=== PATIENT | female | born 1965 | race Caucasian/White ===

== ENCOUNTER 2020-09-06 18:45 | Emergency (ER) | payer BC ==
[~2020-09-06] VITALS: Ht 165.1 cm; Wt 46.3 kg
[2020-09-06 19:10] VITALS: BP 126/70
--- NOTE | 2020-09-06 19:15 | NUR ---
Patient presents with three day history of N/V/D and lower abdominal pain. States, "Have a history of kidney stones and think I am passing one. I also think my Crohn's is flaring up." Rates pain 01/12. Patient states she has tried imodium, tylenol, and zofran with no improvement of symptoms.
[2020-09-06] MEDS ORDERED: ZOFRAN IV STA (19:20)
[2020-09-06] MEDS ORDERED: DILAUDID IV STA (19:20)
[2020-09-06] MEDS ORDERED: LACTATED RINGERS 1,000 ML ONE ×2 (19:21→21:40)
[2020-09-06] MEDS ORDERED: DILAUDID ONE (19:22)
[2020-09-06] MEDS ORDERED: ZOFRAN ONE (19:22)
[2020-09-06] MEDS: LACTATED RINGERS 1,000 ML IV SCH ×2 (19:33→20:37)
--- NOTE | 2020-09-06 19:37 | NUR ---
Using aseptic technique peripheral IV started in right AC x 1 attempt, good blood return, blood work drawn, flushed with NS, secured with tegaderm and tape, patient tolerated well
[2020-09-06 19:45] LABS: BASOPHIL # 0.1 10^3/uL (0.0-0.1); BASOPHIL % 0.3 % (0.0-0.2); EOSINOPHIL % 0.2 % (0.0-5.0); LYMPHOCYTES # 1.63 10^3/uL1 (1.0-4.8); LYMPHOCYTES % 8.3 % (24.0-44.0); MEAN CORP HGB 31.3 pg (26-34); MONOCYTES # 1.7 10^3/uL (0.3-0.8); MONOCYTES % 8.4 % (5.0-12.0); NEUTROPHIL # 16.1 10^3/uL (1.8-7.7); NEUTROPHILS % 82.5 % (41.0-85.0); PLATELET COUNT 456 10^3/uL (150-400); RED CELL DISTRIBUTION WIDTH 12.2 % (11.5-14.5)
[2020-09-06 19:47] LABS: BILIRUBIN,URINE NEGATIVE (NEGATIVE); UA COLOR YELLOW
[2020-09-06 19:48] LABS: UROBILINOGEN,URINE 0.2 E.U./dL (0.2)
[2020-09-06 20:04] LABS: CALCIUM 9.1 mg/dL (8.4-10.5); CARBON DIOXIDE 22.3 mmol/L (20.0-32)
[2020-09-06 20:13] VITALS: BP 122/74
--- NOTE | 2020-09-06 21:01 | DIREP ---
PROCEDURE:CT ABD/PELVIS WITHOUT CONTRAST TECHNIQUE:No oral contrast was given. Axial cuts were obtained through the abdomen and pelvis without IV contrast. The images were viewed at lung, liver, bone, and soft tissue settings. Sagittal and coronal reconstructions are provided. COMPARISON:None. INDICATIONS:concerns for stones and crohns flare FINDINGS: LOWER CHEST:The lung bases are clear. Peripherally calcified breast implants LIVER:Punctate calcifications compatible with antecedent granulomatous infection. BILIARY:Normal. PANCREAS:Normal. SPLEEN:Punctate calcifications compatible with antecedent granulomatous infection. KIDNEYS:No evidence of urinary calculi. No evidence of obstructive uropathy. Renal morphology appears unremarkable. ADRENALS:Bilateral adrenal adenomas, slightly larger on the left. AORTA/VASCULAR:Atheromatous calcifications. RETROPERITONEUM:Normal. BOWEL/MESENTERY:Bowel evaluation is limited by the lack of oral contrast. No evidence of bowel obstruction, free intraperitoneal air, or abscess. The appendix is not visualized; however, no adjacent inflammatory changes are present to suggest acute appendicitis. ABDOMINAL WALL:Normal. PELVIS:Normal. BONES:Normal OTHER: The absence of IV contrast limits evaluation of the soft tissues. CONCLUSION: No acute intra-abdominal process Dictated by: Juliana Monk M.D. on 09/06/2020 at 08:52 PM
[2020-09-06 21:15] VITALS: BP 116/73
[2020-09-06] MEDS ORDERED: PREDNISONE PO STA (21:23)
[2020-09-06] MEDS ORDERED: LACTATED RINGERS 1,000 ML IV STA (21:28)
[2020-09-06] MEDS ORDERED: ROCEPHIN 1,000 MG in NS 100ML 100 ML IV STA (21:28)
[2020-09-06] MEDS ORDERED: ROCEPHIN ONE (21:40)
[2020-09-06] MEDS ORDERED: NS 100ML 100 ML IV ONE (21:40)
[2020-09-06] MEDS ORDERED: PREDNISONE ONE (21:41)
--- NOTE | 2020-09-06 22:23 | ER.PDOC ---
General Chief Complaint: Abdomen Pain Stated Complaint: KIDNEY PAIN Time seen by MD: 19:20 Source: patient Exam Limitations: no limitations History of Present Illness Initial Comments 55-year-old female with past medical history of Crohn's disease complaining of 3 days of progressive lower abdominal pain and diarrhea. Patient states that she was concerned she may have kidney stones which she has had so in the past due to the lower abdominal pain but she has recently also been taking prednisone for for Crohn's flare that she had stopped approximately a week ago. Patient does have a GI doctor back in [place] but is looking to establish care with a new GI provider locally. She is taking her daily Crohn's regimen and does have few prednisone at home to take for a flare. She does have lower abdominal cramping and some dysuria in addition to the diarrhea.She denies fevers chills or any other associated symptoms. She does have some nausea at times. Severity/Quality: moderate, severe, cramping, sharpness, stabbing Associated Symptoms: diarrhea Allergies: Coded Allergies: calcium (Verified Allergy, Intermediate, 09/06/20) Vital Signs First Vital Signs Date Time Temp Pulse Resp B/P (MAP) Pulse Ox O2 Delivery O2 Flow Rate FiO2 09/06/20 19:10 98.2 124 18 09/06/20 19:10 97 09/06/20 19:10 126/70 (88) Last Vital Signs Date Time Temp Pulse Resp B/P (MAP) Pulse Ox O2 Delivery O2 Flow Rate FiO2 09/06/20 20:13 110 18 122/74 (90) 96 09/06/20 19:10 98.2 Past Medical History Medical History: other Surgical History: breast augmentation, tonsillectomy Social History Alcohol Use: none Drug Use: none EENTM: no symptoms reported Respiratory: no symptoms reported Cardiovascular: no symptoms reported Gastrointestinal: see HPI Genitourinary: see HPI Musculoskeletal: no symptoms reported; denies see HPI, denies back pain, denies gout, denies joint pain, denies joint swelling, denies muscle pain, denies muscle stiffness, denies neck pain, denies other Skin: denies no symptoms reported, denies see HPI, denies change in color, denies change in hair/nails, denies dryness, denies lesions, denies lumps, denies rash, denies other Psychiatric/Neurological: denies no symptoms reported, denies see HPI, denies anxiety, denies depressed, denies emotional problems, denies headache, denies numbness, denies paresthesia, denies pre-existing deficit, denies seizure, denies tingling, denies tremors, denies weakness, denies other Endocrine: no symptoms reported Hematologic/Lymphatic: no symptoms reported Physical Exam General Appearance: Moderate Distress HEENT: PERRL/EOMI, Normal ENT Inspection Neck: Non-Tender Respiratory: chest non-tender, normal breath sounds Cardiovascular: Normal Peripheral Pulses, Regular Rate, Rhythm, No Edema Gastrointestinal: Normal Bowel Sounds, Tenderness (Suprapubic tenderness) Back: Normal Inspection, No CVA Tenderness Extremities: Normal Range of Motion, Non-Tender Neurologic/Psychiatric: clinical support associate II-XII NML as Tested, No Motor/Sensory Deficits, Alert, Oriented x 3 Skin: Normal Color, Warm/Dry Results/Orders Results/Orders Orders - GUERLINE NEELY DO Ringer's Solution,Lactated (Lactated Rin (09/06/20 19:21) Ondansetron Hcl/Pf (Zofran) (09/06/20 19:22) Hydromorphone Hcl (Dilaudid) (09/06/20 19:22) Cbc With Auto Diff (09/06/20 19:20) Comprehensive Metabolic Panel (09/06/20 19:20) Amylase (09/06/20 19:20) Lipase (09/06/20 19:20) Urinalysis (09/06/20 19:20) Ringer's Solution,Lactated (Lactated Rin (09/06/20 19:30) Hydromorphone Hcl (Dilaudid) (09/06/20 19:20) Ondansetron Hcl/Pf (Zofran) (09/06/20 19:20) Urine Culture (09/06/20 19:00) Ct Abd/Pelvis Wo Iv Contrast (09/06/20 20:15) Prednisone (Prednisone) (09/06/20 21:23) Ceftriaxone Sodium (Rocephin) (09/06/20 21:28) Ringer's Solution,Lactated (Lactated Rin (09/06/20 21:28) 0.9 % Sodium Chloride (Ns 100ml) (09/06/20 21:40) Ringer's Solution,Lactated (Lactated Rin (09/06/20 21:40) Ceftriaxone Sodium (Rocephin) (09/06/20 21:40) Vital Signs Date Time Temp Pulse Resp B/P (MAP) Pulse Ox O2 Delivery O2 Flow Rate FiO2 09/06/20 20:13 110 18 122/74 (90) 96 09/06/20 19:10 98.2 124 18 126/70 (88) 97 09/06/20 19:10 98.2 124 18 97 09/06/20 19:10 98.2 124 18 Administered Medications Medications (Trade) Dose Ordered Sig/Waldo Route PRN Reason Start Time Stop Time Status Last Admin Dose Admin Ceftriaxone Sodium 1000 mg/ Sodium Chloride 100 ml @ 100 mls/hr OT STAT IV 09/06/20 21:28 09/06/20 22:27 09/06/20 21:45 100 MLS/HR Hydromorphone HCl (Dilaudid) 1 mg OT STAT IV 09/06/20 19:20 09/06/20 19:24 DC 09/06/20 19:36 1 MG Ondansetron HCl (Zofran) 4 mg OT STAT IV 09/06/20 19:20 09/06/20 19:24 DC 09/06/20 19:30 4 MG Prednisone (Prednisone) 40 mg STAT STAT PO 09/06/20 21:23 09/06/20 21:24 UNV 09/06/20 21:48 40 MG Laboratory Tests Test 09/06/20 19:00 09/06/20 19:40 Urine Collection Type UNKNOWN Urine Color YELLOW Urine Appearance HAZY Urine Bilirubin NEGATIVE (NEGATIVE) Urine Ketones 40 mg/dL (NEGATIVE) H Urine Specific [place] 1.025 (1.005-1.030) Urine pH 5.5 (4.5-8.0) Urine Protein TRACE (NEGATIVE) H Urine Urobilinogen 0.2 E.U./dL (0.2) Urine Nitrate NEGATIVE (NEGATIVE) Urine Leukocyte Esterase SMALL (NEGATIVE) H Urine Glucose (Auto)(UA) NEGATIVE (NEGATIVE) Urine Blood TRACE-INTACT (NEGATIVE) H Urine RBC 0-2 RBC/HPF (NONE SEEN) Urine WBC 5-10 WBC/HPF (0-2) H Urine Squamous Epithelial Cells FEW #/HPF (FEW) Urine Bacteria FEW (NONE SEEN) H Urine Other MUCOUS 1+ #/HPF White Blood Count 19.6 10^3/uL (4.5-11.0) H Red Blood Count 4.44 10^6/uL (4.00-5.20) Hemoglobin 13.9 g/dL (12.0-15.0) Hematocrit 41.7 % (36.0-46.0) Mean Corpuscular Volume 93.9 fL (78-100) Mean Corpuscular Hemoglobin 31.3 pg (26-34) Mean Corpuscular Hemoglobin Concent 33.3 g/dL (33-36.5) Red Cell Distribution Width 12.2 % (11.5-14.5) Platelet Count 456 10^3/uL (150-400) H Mean Platelet Volume 9.8 fL (7.8-11.0) Neutrophils (%) (Auto) 82.5 % (41.0-85.0) Lymphocytes (%) (Auto) 8.3 % (24.0-44.0) L Monocytes (%) (Auto) 8.4 % (5.0-12.0) Neutrophils # (Auto) 16.1 10^3/uL (1.8-7.7) H Lymphocytes # (Auto) 1.63 10^3/uL1 (1.0-4.8) Monocytes # (Auto) 1.7 10^3/uL (0.3-0.8) H Absolute Immature Granulocyte (auto 0.05 10^3 u/L (0-2) Absolute Eosinophils (auto) 0.0 10^3/uL (0.0-0.2) Immature Granulocytes % 0.30 % (0.00-0.50) Eosinophils % 0.2 % (0.0-5.0) Basophils % 0.3 % (0.0-0.2) H Basophils # 0.1 10^3/uL (0.0-0.1) Sodium Level 134 mmol/L (132-145) Potassium Level 3.3 mmol/L (3.6-5.2) L Chloride Level 98.0 mmol/L (96-109) Carbon Dioxide Level 22.3 mmol/L (20.0-32) Anion Gap 17.0 Blood Urea Nitrogen 7 mg/dL (7-18) Creatinine 0.85 mg/dL (0.59-1.40) Estimated GFR () 84.7 (>/=60) Est GFR (CKD-EPI)(Non-Afr Singaporean) 70.0 (>/=60) BUN/Creatinine Ratio 8.0 Glucose Level 116 mg/dL (70-110) H Calcium Level 9.1 mg/dL (8.4-10.5) Total Bilirubin 0.5 mg/dL (0.2-1.0) Aspartate Amino Transferase (AST) 13 U/L (0-35) Alanine Aminotransferase (ALT) 15 U/L (12-78) Alkaline Phosphatase 150 U/L (50-136) H Total Protein 7.7 g/dL (6.4-8.2) Albumin 3.1 g/dL (3.4-5.0) L Globulin 4.6 Albumin/Globulin Ratio 0.673 Amylase Level 32 U/L (25-115) Lipase 19 U/L (114-286) L Progress Progress Patient given IV fluids with lactated Ringer's Dilaudid 1 mg and Zofran 4 mg IV with significant improvement. Urinalysis with evidence of blood and bacteria. CT abdomen pelvis without evidence of acute process. Patient's condition significantly improved. Prednisone 40 mg given. Patient counseled to continue home prednisone taper for flare as she typically would. Patient understands plan and agrees. Will cover with with ceftriaxone 1 g IV while in ER and give prescription for Macrobid for UTI. EKG/XRAY/CT/US CT Comments: CT abdomen pelvis without acute pathology. ER DEPART Departure Time of Disposition: 22:22 Disposition: 01 HOME / SELF CARE / HOMELESS Impression: Primary Impression: Crohn's disease Additional Impression: Urinary tract infection Condition: Improved Referrals: PCP,UNKNOWN (PCP) PRIMARY CARE PROVIDER Duration or Time Spent with Pa: 25 Problem Qualifiers GUERLINE NEELY DO Sep 06, 2020 22:23
[2020-09-06] MEDS ORDERED: NORCO 5MG PO PRN (22:30)
[2020-09-06] MEDS ORDERED: NORCO 5MG PO ONE (22:31)
[2020-09-06 22:40] VITALS: BP 123/71
== END 2020-09-06 22:40 | disposition home or self-care (01) ==
LOC: ER 18:45
DX: N39.0 Urinary tract infection, site not specified (principal); K50.90 Crohn's disease, unspecified, without complications; Z79.52 Long term (current) use of systemic steroids; Z79.899 Other long term (current) drug therapy; Z87.442 Personal history of urinary calculi
CPT/HCPCS: 36415; 74176; 80053; 81015; 82150; 83690; 85025; 87086; 96365; 96375; 99285; J0696 ×2; J1170; J2405; J7120 ×2; J7512; 81001; 81003; 99284